=== PATIENT | female | born 1985 | race Caucasian/White ===

== ENCOUNTER → 2017-10-27 | Outpatient (CLI) | payer BC | END | disposition home or self-care (01) | LOC: US 09:03 | DX: Z30.431 Encounter for routine checking of intrauterine contraceptive device (principal); N83.201 Unspecified ovarian cyst, right side | CPT/HCPCS: 76856 ==

== ENCOUNTER 2020-03-06 03:37 | Emergency (ER) | payer BC ==
[~2020-03-06] VITALS: Ht 152.4 cm; Wt 150.0 kg
[2020-03-06] MEDS ORDERED: CONTRAST GIVEN. MC PRN (04:15)
[2020-03-06 04:19] LABS: BASO % 0 % (0-3); EOS % 0 % (0-3); HEMOGLOBIN 12.6 g/dL (12.0-15.5); LYMPH # 2.4 x10^3/uL (1.0-4.8); LYMPH % 22 % (24-48); MEAN CORPUSCULAR HEMOGLOBIN 32 pg (25-35); MEAN CORPUSCULAR HGB CONC 34 g/dL (31-37); MEAN CORPUSCULAR VOLUME 94 fL (79-100); MONO # 0.8 x10^3/uL (0.0-1.1); MONO % 7 % (0-9); NEUT # 7.5 x10^3/uL (1.8-7.7); NEUT % 70 % (31-73); PLATELET COUNT 297 x10^3/uL (140-400); RED BLOOD COUNT 3.93 x10^6/uL (3.50-5.40); RED CELL DISTRIBUTION WIDTH 12.6 % (11.5-14.5); WHITE BLOOD COUNT 10.7 x10^3/uL (4.0-11.0)
[2020-03-06] MEDS: fentaNYL PF VIAL 100 MCG/2 ML VIAL IV PRN ×3 (04:20→06:18)
[2020-03-06 04:28] LABS: CALCIUM 8.2 mg/dL (8.5-10.1); CREATININE 0.8 mg/dL (0.6-1.0); GFR 82.6
[2020-03-06] MEDS ORDERED: IV NORMAL SALINE 1000ML BAG 1,000 ML IV SCH (04:30)
[2020-03-06] MEDS ORDERED: IOHEXOL 300 MG/ML 100ML VIAL. IV ONE (04:30)
[2020-03-06] MEDS ORDERED: cefTRIAXone IV Push 1 GM VIAL. IVP ONE (05:00)
[2020-03-06] MEDS ORDERED: methylPREDNISolone SOD SUCC PF 125 MG/2 ML VIAL. IV ONE (05:00)
--- NOTE | 2020-03-06 05:02 | RAD ---
CT neck with contrast History: Sore throat stiff neck difficulty swallowing Axial helical images of the neck were obtained after the administration of 70 cc IV Omni 300 contrast. Axial coronal and sagittal reconstruction was performed for a CT soft tissues neck with contrast. Findings: There is a thick-walled fluid collection in the inferior right tonsil that measures 2.5 x 1.8 cm. There is some edema around the tonsils is loss of fat soft tissue planes. There is no prevertebral soft tissue swelling. The thyroid appears normal. Mild reversal of the normal cervical lordosis is seen. Impression: Right tonsillar abscess. PQRS Compliance Statement: One or more of the following individualized dose reduction techniques were utilized for this examination: 1. Automated exposure control 2. Adjustment of the mA and/or kV according to patient size 3. Use of iterative reconstruction technique Electronically signed by: Kermit Anthony III, MD (03/06/2020 4:59 AM) [id number]
--- NOTE | 2020-03-06 05:28 | PHYS DOC ---
Past Medical History Past Medical History: Diabetes-Type I, Hypothyroid, Other Additional Past Medical Histor: CARDIOMYOPATHY Past Surgical History: Smoking Status: Current Every Day Smoker Alcohol Use: None General Adult EDM: Chief Complaint: SORE THROAT HPI: HPI: Patient is a 35 year old female who presents with complaint of sore throat and difficulty swallowing for the past 4 days. Patient states that she was seen at urgent care 3 days ago and was prescribed a Z-Jeremias. Patient states that swelling and pain are progressively getting worse and now pain is severe. She states that she is having difficulty swallowing fluids. [] Review of Systems: Review of Systems: Constitutional: Denies fever or chills. [] HENT: Positive sore throat. [] Respiratory: Denies cough or shortness of breath. [] Cardiovascular: Denies chest pain or edema. [] Neurologic: Denies headache, focal weakness or sensory changes. [] A full 10 point review of systems has been reviewed and is otherwise negative. Heart Score: Risk Factors: Risk Factors: DM, Current or recent (<one month) smoker, HTN, HLP, family history of CAD, obesity. Risk Scores: Score 0 - 3: 2.5% MACE over next 6 weeks - Discharge Home Score 4 - 6: 20.3% MACE over next 6 weeks - Admit for Clinical Observation Score 7 - 10: 72.7% MACE over next 6 weeks - Early Invasive Strategies Current Medications: Current Medications Medications (Trade) Dose Ordered Sig/Kenyatta Start Time Stop Time Status Last Admin Dose Admin Ceftriaxone Sodium (Rocephin) 1 gm 1X ONCE 03/06/20 05:00 03/06/20 05:01 DC 03/06/20 04:27 1 GM Fentanyl Citrate (Fentanyl 2ml Vial) 50 mcg PRN Q15MIN PRN 03/06/20 04:00 03/07/20 03:59 03/06/20 04:20 50 MCG Info (CONTRAST GIVEN -- Rx MONITORING) 1 each PRN DAILY PRN 03/06/20 04:15 03/08/20 04:14 Iohexol (Omnipaque 300 Mg/ml) 75 ml 1X ONCE 03/06/20 04:30 03/06/20 04:31 DC 03/06/20 04:51 75 ML Methylprednisolone Sodium Succinate (SOLU-Medrol 125MG VIAL) 125 mg 1X ONCE 03/06/20 05:00 03/06/20 05:01 DC 03/06/20 04:27 125 MG Sodium Chloride 1,000 ml @ 1,000 mls/hr Q1H 03/06/20 04:30 03/06/20 05:29 03/06/20 04:20 1,000 MLS/HR Allergies: Allergies: Allergies Coded Allergies Type Severity Reaction Last Updated Verified No Known Drug Allergies 03/06/20 No Physical Exam: PE: Constitutional: Well developed, well nourished, no acute distress, non-toxic appearance. [] HENT: Normocephalic, atraumatic, bilateral external ears normal, throat reveals marked right-sided tonsillar swelling with uvular deviation. [] Eyes: PERRLA, EOMI, conjunctiva normal, no discharge. [] Neck: Normal range of motion, no tenderness, supple, with right-sided cervical lymphadenopathy. [] Cardiovascular: Regular rate and rhythm [] Lungs & Thorax: Bilateral breath sounds clear to auscultation [] Abdomen: Bowel sounds normal, soft, no tenderness. [] Skin: Warm, dry, no erythema, no rash. [] Extremities: No tenderness, no cyanosis, no clubbing, ROM intact. [] Neurologic: Alert and oriented X 3, no focal deficits noted. [] Current Patient Data: Labs: Laboratory Tests Test 03/06/20 04:10 White Blood Count 10.7 x10^3/uL (4.0-11.0) Red Blood Count 3.93 x10^6/uL (3.50-5.40) Hemoglobin 12.6 g/dL (12.0-15.5) Hematocrit 37.0 % (36.0-47.0) Mean Corpuscular Volume 94 fL (79-100) Mean Corpuscular Hemoglobin 32 pg (25-35) Mean Corpuscular Hemoglobin Concent 34 g/dL (31-37) Red Cell Distribution Width 12.6 % (11.5-14.5) Platelet Count 297 x10^3/uL (140-400) Neutrophils (%) (Auto) 70 % (31-73) Lymphocytes (%) (Auto) 22 % (24-48) L Monocytes (%) (Auto) 7 % (0-9) Eosinophils (%) (Auto) 0 % (0-3) Basophils (%) (Auto) 0 % (0-3) Neutrophils # (Auto) 7.5 x10^3/uL (1.8-7.7) Lymphocytes # (Auto) 2.4 x10^3/uL (1.0-4.8) Monocytes # (Auto) 0.8 x10^3/uL (0.0-1.1) Eosinophils # (Auto) 0.0 x10^3/uL (0.0-0.7) Basophils # (Auto) 0.0 x10^3/uL (0.0-0.2) Sodium Level 139 mmol/L (136-145) Potassium Level 4.0 mmol/L (3.5-5.1) Chloride Level 103 mmol/L (98-107) Carbon Dioxide Level 29 mmol/L (21-32) Anion Gap 7 (6-14) Blood Urea Nitrogen 11 mg/dL (7-20) Creatinine 0.8 mg/dL (0.6-1.0) Estimated GFR (Cockcroft-Gault) 82.6 Glucose Level 261 mg/dL (70-99) H Calcium Level 8.2 mg/dL (8.5-10.1) L Laboratory Tests 03/06/20 04:10 Laboratory Tests 03/06/20 04:10 Vital Signs: Vital Signs Date Time Temp Pulse Resp B/P (MAP) Pulse Ox O2 Delivery O2 Flow Rate FiO2 03/06/20 04:51 83 18 123/60 (81) 97 Room Air 03/06/20 03:41 98.4 98.4 EKG: EKG: [] Radiology/Procedures: Radiology/Procedures: [] Impression: PROCEDURE: CT SOFT TISSUE NECK W/CONTRAST CT neck with contrast History: Sore throat stiff neck difficulty swallowing Axial helical images of the neck were obtained after the administration of 70 cc IV Omni 300 contrast. Axial coronal and sagittal reconstruction was performed for a CT soft tissues neck with contrast. Findings: There is a thick-walled fluid collection in the inferior right tonsil that measures 2.5 x 1.8 cm. There is some edema around the tonsils is loss of fat soft tissue planes. There is no prevertebral soft tissue swelling. The thyroid appears normal. Mild reversal of the normal cervical lordosis is seen. Impression: Right tonsillar abscess. PQRS Compliance Statement: One or more of the following individualized dose reduction techniques were utilized for this examination: 1. Automated exposure control 2. Adjustment of the mA and/or kV according to patient size 3. Use of iterative reconstruction technique Electronically signed by: Umm Aguayo III, MD (03/06/2020 4:59 AM) [id number] DICTATED and SIGNED BY: UMM AGUAYO III, MD DATE: 03/06/20 0459 Course & Med Decision Making: Course & Med Decision Making Pertinent Labs and Imaging studies reviewed. (See chart for details) Patient moved to room upon arrival was evaluated by ER medical staff after which IV was established and blood work was drawn. A CT of the soft tissue neck with contrast was obtained. CT demonstrates findings consistent with peritonsillar abscess. Initial plan was for transfer patient to [facility]; however, Dr. Perez has indicated that he will see patient in his office today. Patient will be discharged home with instructions to call the office once it opens this morning and he will fit her in. Dragon Disclaimer: Dragjose alfredo Disclaimer: This electronic medical record was generated, in whole or in part, using a voice recognition dictation system. Departure Departure Impression: Primary Impression: Peritonsillar abscess Disposition: HOME, SELF-CARE Condition: IMPROVED Referrals: ANA LIILA GAMBOA MD (PCP) Patient Instructions: Peritonsillar Abscess Additional Instructions: Call Dr. Perez office this morning to schedule appointment for later today. The office number is: . Scripts Ondansetron (ONDANSETRON ODT) 4 Mg Tab.rapdis 1 TAB PO PRN Q6-8HRS PRN for NAUSEA, #15 TAB Prov: EUFEMIA BREWSTER Jr. DO 03/06/20 Hydrocodone Bit/Acetaminophen (HYDROCODONE-APAP 7.5-325/15 SOLN ) 15 Ml Solution 15 ML PO PRN Q4-6HRS PRN for pain MDD 90 Milliliter(s) for 7 Days, #240 ML 0 Refills Prov: EUFEMIA BREWSTER Jr. DO 03/06/20 EUFEMIA BREWSTER Jr. DO March 06, 2020 05:28
[2020-03-06] MEDS ORDERED: ONDA4TAB12 PO (06:09)
[2020-03-06] MEDS ORDERED: HYDR15SO6 PO (06:09)
[2020-03-06 06:22] VITALS: BP 101/60
== END 2020-03-06 06:25 | disposition home or self-care (01) ==
LOC: ER 03:37
DX: J36 Peritonsillar abscess (principal); R13.10 Dysphagia, unspecified; R60.0 Localized edema; E10.9 Type 1 diabetes mellitus without complications; E03.9 Hypothyroidism, unspecified; F17.200 Nicotine dependence, unspecified, uncomplicated; Z98.890 Other specified postprocedural states
CPT/HCPCS: 36415; 70491; 80048; 85025; 96374; 96375; 96376; 99285; J0696; J2930; J3010; J7030; Q9967

== ENCOUNTER 2020-03-08 14:20 | Emergency (ER) | payer BC ==
[~2020-03-08] VITALS: Ht 152.4 cm; Wt 72.2 kg
[~2020-03-08 14:20] MED LIST: HYDR15SO6 PO; ONDA4TAB12 PO
[2020-03-08 14:48] VITALS: BP 113/61
[2020-03-08] MEDS ORDERED: DEXAMETHASONE SOD PHOS 20 MG/5 ML VIAL. IM ONE (15:15)
[2020-03-08 15:56] LABS: BILIRUBIN,URINE NEGATIVE (NEG); CLARITY,URINE CLEAR; COLOR,URINE YELLOW; NITRITE,URINE NEGATIVE (NEG); PROTEIN,URINE NEGATIVE (NEG-TRACE)
[2020-03-08 16:03] LABS: BACTERIA,URINE 0 /HPF (0-FEW); SQUAMOUS EPITHELIAL CELL,UR FEW /LPF
--- NOTE | 2020-03-08 16:18 | PHYS DOC ---
Past Medical History Past Medical History: Diabetes-Type I, Hypothyroid, Other Additional Past Medical Histor: CARDIOMYOPATHY Past Surgical History: Smoking Status: Current Every Day Smoker Alcohol Use: None Drug Use: None General Adult EDM: Chief Complaint: MULTIPLE COMPLAINTS HPI: HPI: 35 year old female presents with history of report of sore throat, and ear fulness x 4 days. Reports temperature of 99.9 F. Reports seen on Thursday and diagnosed with a peritonsillar abscess and sent to [facility] for I&D. Reports swelling in throat has improved. Denies known sick contacts. Reports is currently taking clindamycin and steroids. Review of Systems: Review of Systems: Constitutional: Reports fever Eyes: Denies change in visual acuity, redness, or eye pain HENT: Denies nasal congestion; reports sore throat Respiratory: Denies cough or shortness of breath Cardiovascular: Denies chest pain or palpitations GI: Denies abdominal pain, nausea, vomiting, or diarrhea : Denies dysuria or hematuria; reports increased urinary frequency Musculoskeletal: Denies back pain or joint pain Integument: Denies rash or skin lesions Neurologic: Denies headache, focal weakness or sensory changes Complete systems were reviewed and found to be within normal limits, except as documented in this note Current Medications: Current Medications Medications (Trade) Dose Ordered Sig/Kenyatta Start Time Stop Time Status Last Admin Dose Admin Dexamethasone Sodium Phosphate (Decadron) 10 mg 1X ONCE 03/08/20 15:15 03/08/20 15:15 DC Allergies: Allergies: Allergies Coded Allergies Type Severity Reaction Last Updated Verified No Known Drug Allergies 03/06/20 No Physical Exam: PE: Constitutional: Well developed, well nourished, no acute distress, non-toxic appearance HENT: Normocephalic, atraumatic, oropharynx moist, pharynx without erythema, tonsillar appear normal, uvula midline, TMs clear bilaterally, nose normal Eyes: Conjunctiva normal, no discharge Neck: Normal range of motion, no tenderness, supple, no meningeal signs Cardiovascular: Heart rate normal and regular rhythm Lungs & Thorax: Bilateral breath sounds clear to auscultation, no respiratory distress Abdomen: Soft, no tenderness Skin: Warm, dry, no erythema, no rash Extremities: No tenderness, ROM intact, no edema Neurologic: Alert and oriented X 3, no focal deficits noted Psychologic: Affect normal, judgement normal Current Patient Data: Labs: Laboratory Tests Test 03/08/20 15:30 03/08/20 15:41 Urine Collection Type Unknown Urine Color Yellow Urine Clarity Clear Urine pH 7.0 (<5.0-8.0) Urine Specific [place] 1.010 (1.000-1.030) Urine Protein Negative mg/dL (NEG-TRACE) Urine Glucose (UA) 500 mg/dL (NEG) Urine Ketones (Stick) Negative mg/dL (NEG) Urine Blood Negative (NEG) Urine Nitrite Negative (NEG) Urine Bilirubin Negative (NEG) Urine Urobilinogen Dipstick 1.0 mg/dL (0.2 mg/dL) Urine Leukocyte Esterase Negative (NEG) Urine RBC 1-2 /HPF (0-2) Urine WBC 1-4 /HPF (0-4) Urine Squamous Epithelial Cells Few /LPF Urine Bacteria 0 /HPF (0-FEW) POC Urine HCG, Qualitative Hcg negative (Negative) Vital Signs: Vital Signs Date Time Temp Pulse Resp B/P (MAP) Pulse Ox O2 Delivery O2 Flow Rate FiO2 03/08/20 14:48 98.3 66 16 113/61 (78) 97 Room Air 98.3 EKG: EKG: [] Radiology/Procedures: Radiology/Procedures: [] Course & Med Decision Making: Course & Med Decision Making Pertinent Lab studies reviewed. (See chart for details) Patient with history of peritonsillar abscess presents with concern for elevated temp and continued sore throat and ear fullness. Patient afebrile. Pharynx appears normal. TMs clear. UA without signs of infection. Urinary frequency more likely secondary to patient's elevated blood sugars while on steroids. Patient stable for discharge home with outpatient follow-up with PCP. Discussed findings and plan with patient, who acknowledges understanding and agreement. Flako Disclaimer: Flako Disclaimer: This electronic medical record was generated, in whole or in part, using a voice recognition dictation system. Departure Departure Impression: Primary Impression: Urinary frequency Additional Impressions: Hx of fever Hx of peritonsillar abscess drainage Disposition: 01 HOME, SELF-CARE Condition: STABLE Referrals: ANA LILIA GAMBOA MD (PCP) Patient Instructions: Fever, Adult, [id number], Peritonsillar Abscess, [id number], Urinary Frequency Additional Instructions: Please continue previously prescribed antibiotics and steroids until completed. Watch diet and increased fluid hydration. JANIA KING DO March 08, 2020 16:18
== END 2020-03-08 16:42 | disposition home or self-care (01) ==
LOC: ER 14:20
DX: R35.0 Frequency of micturition (principal); J36 Peritonsillar abscess; E03.9 Hypothyroidism, unspecified; E10.9 Type 1 diabetes mellitus without complications; F17.200 Nicotine dependence, unspecified, uncomplicated
CPT/HCPCS: 81001; 81025; 99283